=== PATIENT | male | born 1985 | race African-American/Black ===

== ENCOUNTER 2017-05-16 14:21 | Emergency (ER) | payer SELFPAY ==
[~2017-05-16] VITALS: Ht 177.8 cm; Wt 73.0 kg
[2017-05-16 17:15] VITALS: BP 129/77
== END 2017-05-16 17:16 | disposition home or self-care (01) ==
LOC: ER 15:12
DX: M25.512 Pain in left shoulder (principal); M25.511 Pain in right shoulder; M54.5 Low back pain
CPT/HCPCS: 99281